=== PATIENT | male | born 1955 | race Caucasian/White ===

== ENCOUNTER 2019-07-21 01:45 | Inpatient (IN) | payer OTHER ==
[~2019-07-21] VITALS: Ht 182.9 cm; Wt 77.1 kg
[2019-07-21 02:00] VITALS: BP 112/73; PULSE 67; RESP 18
[2019-07-21] MEDS: SOD CHLORIDE 0.9% 1,000 ML IV SCH ×2 (03:30→15:51)
[2019-07-21] MEDS ORDERED: morphine 2 MG INJ IV PRN (03:30)
[2019-07-21] MEDS ORDERED: ONDANSETRON 4 MG INJ IV PRN ×2 (03:30→08:30)
[2019-07-21] MEDS ORDERED: ACETAMINOPHEN 325 MG TAB PO PRN ×2 (03:30→08:30)
[2019-07-21 08:30] VITALS: BP 99/63; PULSE 66; RESP 20
[2019-07-21] MEDS ORDERED: NACL 0.9% 3 ML SYG IV SCH (08:30)
[2019-07-21] MEDS ORDERED: HYDROCODONE/APAP (5/325) TAB PO PRN (08:30)
[2019-07-21] MEDS ORDERED: BISACODYL (EC) 5 MG TAB PO PRN (08:30)
[2019-07-21] MEDS ORDERED: DOCUSATE SODIUM 100 MG CAP PO PRN (08:30)
[2019-07-21] MEDS: NEOMYC/POLYMYX/BACIT 30 GM OINT TOP SCH ×3 (10:06→20:39)
[2019-07-21 14:15] VITALS: BP 108/67; PULSE 69; RESP 18
[2019-07-21 20:00] VITALS: BP 106/57; PULSE 74; RESP 18
[2019-07-22 02:00] VITALS: BP 107/63; PULSE 69; RESP 18
[2019-07-22] MEDS: SOD CHLORIDE 0.9% 1,000 ML IV SCH ×2 (05:03→22:27)
[2019-07-22 08:00] VITALS: BP 111/71; PULSE 61; RESP 14
[2019-07-22] MEDS: NEOMYC/POLYMYX/BACIT 30 GM OINT TOP SCH ×3 (08:47→22:27)
[2019-07-22 14:00] VITALS: BP 98/57; PULSE 68; RESP 16
[2019-07-22 19:20] VITALS: BP 119/77; PULSE 74; RESP 18
[2019-07-23 02:10] VITALS: BP 112/71; PULSE 63; RESP 16
[2019-07-23 08:00] VITALS: BP 115/78; PULSE 67; RESP 18
[2019-07-23] MEDS: SOD CHLORIDE 0.9% 1,000 ML IV SCH ×2 (08:46→10:50)
[2019-07-23] MEDS: NEOMYC/POLYMYX/BACIT 30 GM OINT TOP SCH ×2 (08:47→12:34)
[2019-07-23] MEDS ORDERED: HEPARIN 5,000 UNIT/1 ML VIAL SC SCH (09:00)
[2019-07-23] MEDS ORDERED: LORAZEPAM 2 MG INJ IV PRN (13:30)
[2019-07-23 14:00] VITALS: BP 124/62; PULSE 76; RESP 20
== END 2019-07-23 16:10 | disposition left against medical advice (07) | DRG 563 ==
LOC: PP2 01:45
PROVIDERS: ADMIT Family Medicine; ATTEND Family Medicine
DX: S82.042A Displaced comminuted fracture of left patella, initial encounter for closed fracture (principal); V18.2XXA Unspecified pedal cyclist injured in noncollision transport accident in nontraffic accident, initial encounter; Y93.55 Activity, bike riding; Y92.89 Other specified places as the place of occurrence of the external cause; Y99.8 Other external cause status; F14.10 Cocaine abuse, uncomplicated; F15.10 Other stimulant abuse, uncomplicated; F12.10 Cannabis abuse, uncomplicated; F17.200 Nicotine dependence, unspecified, uncomplicated
CPT/HCPCS: 71045; 73560; 73700; 80048; 83036; 85025; 85610; 85730; 87081; 93005; J1644; J7030